=== PATIENT | male | born 1950 | race Two or more races ===

== ENCOUNTER → 2024-06-02 | Outpatient (CLI) | payer MEDICARE, MEDICAID, SELFPAY ==
[2024-06-02 08:39] LABS: Basophils # (Auto) 0.1 Thou/mm3 (0.0-0.2); Basophils % (Auto) 1 % (0-2.5); Eosinophils # (Auto) 0.3 Thou/mm3 (0.0-0.5); Eosinophils % (Auto) 4 % (0-10); Hemoglobin 13.6 g/dL (13.5-16.0); Immature Granulocytes % (Auto) 0 % (0-0); Immature Granulocytes Auto 0.01 Thou/mm3 (0.00-0.00); Lymphocytes # (Auto) 4.6 Thou/mm3 (1.0-4.8); Lymphocytes % (Auto) 57 % (10-50); Mean Corpuscular HGB Conc 33.2 g/dl (31.0-37.0); Mean Corpuscular Hemoglobin 29.7 pg (25.0-35.0); Mean Corpuscular Volume 90 fL (80-100); Monocytes # (Auto) 0.5 Thou/mm3 (0.0-0.8); Monocytes % (Auto) 6 % (0-12); Neutrophils # (Auto) 2.7 Thou/mm3 (1.8-7.7); Neutrophils % (Auto) 33 % (37-80); Nucleated Red Blood Cell % 0 /100 WBC (0); Platelet Count 272 Thou/mm3 (140-440); RDW Standard Deviation 45.6 fL (35.1-43.9); Red Blood Count 4.58 Miln/mm3 (4.50-5.90); White Blood Count 8.2 Thou/mm3 (3.8-10.6)
[2024-06-02 08:51] LABS: Prostate Specific Antigen < 0.10 ng/mL (0-4.00)
[2024-06-02 08:56] LABS: Alanine Aminotransferase 47 U/L (10-49); Albumin, Serum 4.7 gm/dL (3.4-4.8); Alkaline Phosphatase 70 U/L (46-116); Anion Gap 10 (7-16); Aspartate Amino Transferase 34 U/L (0-34); BUN/Creatinine Ratio 28 Ratio (12-20); Bilirubin,Total 0.4 mg/dL (0.3-1.2); Blood Urea Nitrogen 33 mg/dL (9-23); Carbon Dioxide 21.4 mMol/L (20.0-31.0); Chloride 106 mMol/L (98-107); Creatinine (Component) 1.2 mg/dL (0.6-1.3); Globulin 2.4 gm/dL (2.3-3.5); Glucose 134 mg/dL (74-106); Osmolality,Calculated 283 (275-295); Potassium 4.2 mMol/L (3.4-5.1); Sodium 137 mMol/L (136-145); Total Protein 7.1 gm/dL (5.7-8.2); eGFR > 60 See Note
== END | disposition home or self-care (01) ==
LOC: SCTO 07:46
PROVIDERS: PCP Nurse Practitioner Primary Care; Referring Provider Internal Medicine Hematology & Oncology; Visit Provider Internal Medicine Hematology & Oncology
DX: C61 Malignant neoplasm of prostate (principal); C79.51 Secondary malignant neoplasm of bone
CPT/HCPCS: 36415; 80053; 84153; 85025

== ENCOUNTER 2024-06-06 09:33 | Outpatient (RCR) | payer MEDICARE, MEDICAID, SELFPAY | END 2024-06-20 23:59 | disposition home or self-care (01) | LOC: SCTC 09:33 | PROVIDERS: PCP Nurse Practitioner Primary Care; Referring Provider Nurse Practitioner Primary Care; Visit Provider Nurse Practitioner Family | DX: C61 Malignant neoplasm of prostate (principal); C79.51 Secondary malignant neoplasm of bone; Z79.818 Long term (current) use of other agents affecting estrogen receptors and estrogen levels | CPT/HCPCS: 99212; G0463 ==

== ENCOUNTER → 2024-07-14 | Outpatient (CLI) | payer MEDICARE, MEDICAID, SELFPAY ==
[2024-07-14 08:54] LABS: Basophils # (Auto) 0.1 Thou/mm3 (0.0-0.2); Basophils % (Auto) 1 % (0-2.5); Eosinophils # (Auto) 0.3 Thou/mm3 (0.0-0.5); Eosinophils % (Auto) 3 % (0-10); Hematocrit 39.2 % (41.0-53.0); Hemoglobin 13.4 g/dL (13.5-16.0); Immature Granulocytes % (Auto) 0 % (0-0); Immature Granulocytes Auto 0.01 Thou/mm3 (0.00-0.00); Lymphocytes # (Auto) 4.1 Thou/mm3 (1.0-4.8); Lymphocytes % (Auto) 49 % (10-50); Mean Corpuscular HGB Conc 34.2 g/dl (31.0-37.0); Mean Corpuscular Hemoglobin 30.5 pg (25.0-35.0); Mean Corpuscular Volume 89 fL (80-100); Monocytes # (Auto) 0.6 Thou/mm3 (0.0-0.8); Monocytes % (Auto) 7 % (0-12); Neutrophils # (Auto) 3.3 Thou/mm3 (1.8-7.7); Neutrophils % (Auto) 40 % (37-80); Nucleated Red Blood Cell % 0 /100 WBC (0); Platelet Count 285 Thou/mm3 (140-440); RDW Standard Deviation 44.4 fL (35.1-43.9); White Blood Count 8.4 Thou/mm3 (3.8-10.6)
[2024-07-14 09:04] LABS: Prostate Specific Antigen < 0.10 ng/mL (0-4.00)
[2024-07-14 09:12] LABS: Alanine Aminotransferase 68 U/L (10-49); Albumin, Serum 4.6 gm/dL (3.4-4.8); Albumin/Globulin Ratio 2.1 (1.2-2.2); Alkaline Phosphatase 53 U/L (46-116); Anion Gap 9 (7-16); Aspartate Amino Transferase 39 U/L (0-34); BUN/Creatinine Ratio 23 Ratio (12-20); Bilirubin,Total 0.5 mg/dL (0.3-1.2); Blood Urea Nitrogen 23 mg/dL (9-23); Calcium 9.2 mg/dL (8.3-10.6); Calcium (Corrected) 9.2 mg/dL (8.5-10.1); Carbon Dioxide 24.4 mMol/L (20.0-31.0); Chloride 105 mMol/L (98-107); Globulin 2.2 gm/dL (2.3-3.5); Glucose 118 mg/dL (74-106); Osmolality,Calculated 280 (275-295); Potassium 4.2 mMol/L (3.4-5.1); Sodium 138 mMol/L (136-145); Total Protein 6.8 gm/dL (5.7-8.2); eGFR > 60 See Note
== END | disposition home or self-care (01) ==
LOC: SCTO 07:50
PROVIDERS: PCP Nurse Practitioner Primary Care; Referring Provider Internal Medicine Hematology & Oncology; Visit Provider Internal Medicine Hematology & Oncology
DX: C61 Malignant neoplasm of prostate (principal); C79.51 Secondary malignant neoplasm of bone
CPT/HCPCS: 36415; 80053; 84153; 85025

== ENCOUNTER 2024-07-18 13:30 | Outpatient (RCR) | payer MEDICARE, MEDICAID, SELFPAY | END 2024-07-21 23:59 | disposition home or self-care (01) | LOC: SCTC 13:30 | PROVIDERS: PCP Nurse Practitioner Primary Care; Referring Provider Nurse Practitioner Primary Care; Visit Provider Internal Medicine Hematology & Oncology | DX: Z51.11 Encounter for antineoplastic chemotherapy (principal); C61 Malignant neoplasm of prostate; C79.51 Secondary malignant neoplasm of bone; Z19.2 Hormone resistant malignancy status; Z79.818 Long term (current) use of other agents affecting estrogen receptors and estrogen levels | CPT/HCPCS: 96402; J9217 ==

== ENCOUNTER → 2024-11-17 | Outpatient (CLI) | payer MEDICARE, MEDICAID, SELFPAY ==
[2024-11-17 08:46] LABS: Basophils # (Auto) 0.1 Thou/mm3 (0.0-0.2); Basophils % (Auto) 1 % (0-2.5); Eosinophils # (Auto) 0.3 Thou/mm3 (0.0-0.5); Eosinophils % (Auto) 4 % (0-10); Hematocrit 40.5 % (41.0-53.0); Hemoglobin 13.6 g/dL (13.5-16.0); Immature Granulocytes % (Auto) 0 % (0-0); Immature Granulocytes Auto 0.01 Thou/mm3 (0.00-0.00); Lymphocytes # (Auto) 4.5 Thou/mm3 (1.0-4.8); Lymphocytes % (Auto) 55 % (10-50); Mean Corpuscular HGB Conc 33.6 g/dl (31.0-37.0); Mean Corpuscular Hemoglobin 30.8 pg (25.0-35.0); Mean Corpuscular Volume 92 fL (80-100); Monocytes # (Auto) 0.7 Thou/mm3 (0.0-0.8); Monocytes % (Auto) 8 % (0-12); Neutrophils # (Auto) 2.7 Thou/mm3 (1.8-7.7); Neutrophils % (Auto) 33 % (37-80); Nucleated Red Blood Cell % 0 /100 WBC (0); Platelet Count 290 Thou/mm3 (140-440); RDW Standard Deviation 47.1 fL (35.1-43.9); Red Blood Count 4.42 Miln/mm3 (4.50-5.90); White Blood Count 8.2 Thou/mm3 (3.8-10.6)
[2024-11-17 09:04] LABS: Prostate Specific Antigen < 0.10 ng/mL (0-4.00)
[2024-11-17 09:15] LABS: Alanine Aminotransferase 71 U/L (10-49); Albumin, Serum 4.3 gm/dL (3.4-4.8); Albumin/Globulin Ratio 1.9 (1.2-2.2); Alkaline Phosphatase 71 U/L (46-116); Anion Gap 12 (7-16); Aspartate Amino Transferase 41 U/L (0-34); BUN/Creatinine Ratio 15 Ratio (12-20); Bilirubin,Total 0.4 mg/dL (0.3-1.2); Blood Urea Nitrogen 15 mg/dL (9-23); Calcium 9.3 mg/dL (8.3-10.6); Calcium (Corrected) 9.3 mg/dL (8.5-10.1); Carbon Dioxide 25.4 mMol/L (20.0-31.0); Chloride 105 mMol/L (98-107); Globulin 2.3 gm/dL (2.3-3.5); Glucose 121 mg/dL (74-106); Osmolality,Calculated 284 (275-295); Potassium 4.9 mMol/L (3.4-5.1); Sodium 142 mMol/L (136-145); Total Protein 6.6 gm/dL (5.7-8.2); eGFR > 60 See Note
== END | disposition home or self-care (01) ==
PROVIDERS: PCP Physician Assistant; Referring Provider Nurse Practitioner Family; Visit Provider Nurse Practitioner Family
DX: C61 Malignant neoplasm of prostate (principal); C79.51 Secondary malignant neoplasm of bone
CPT/HCPCS: 36415; 80053; 84153; 85025

== ENCOUNTER 2024-11-21 10:12 | Outpatient (RCR) | payer MEDICARE, MEDICAID, SELFPAY ==
--- NOTE | 2024-11-22 10:10 | CTCFLWUP_ITS ---
Patient: TICO RAYGOZA : 1950 Page 2 of 2 FOLLOW UP NOTE DATE OF SERVICE: 11/21/2024 NAME: TICO RAYGOZA ACCOUNT: [id number] : 1950 AGE: 74 INTERVAL HISTORY: Subjective: Chief Complaint Leg pain for a while , difficulty getting up in the morning History of Present Illness Jaret Torres, a 74-year-old male with a history of prostate cancer on Lupron therapy, presents with leg pain and medication refill requests. The patient reports ongoing leg pain that has been present for a while. He describes the pain as improving with walking and worsening upon waking in the morning. The patient attributes the pain to his age, though no specific incident precipitated its onset. The patient ran out of his calcium and vitamin D supplements approximately one month ago and has not been taking them since. He typically purchases these supplements over the counter in [place]. Additionally, the patient reports running out of his prescribed prednisone and ivermectin medications. Regarding his prostate cancer treatment, the patient continues to take Lupron, which is noted to potentially cause body stiffness as a side effect. His PSA levels remain well-controlled at less than 0.10. The patient denies current alcohol consumption, though there is a history of past alcohol use. He has been advised to limit Tylenol use due to slightly elevated liver enzymes. Medications and Supplements - Calcium and vitamin D - Ran out about a month ago. Previously bought over the counter - Prednisone/ - Zytiga -Ran out - Lupron - Causing body stiffness. Review of Systems Musculoskeletal: Positive for leg pain, improves with walking. Negative for morning stiffness. Objective: Laboratory, Imaging, and Diagnostic Test Results - PSA: < 0.10 - Liver enzymes: Elevated (specific values not provided) History at the time of presentation Tico Raygoza is a 74-year-old Ethiopian-speaking male with following history. 12/28/2016: X-ray of the cervical spine showed abnormal sclerosis involving C3, C5 most consistent with osteoblastic metastasis. 01/12/2017: Bone scan was done which showed abnormal isotope accumulation right acetabulum, right iliac bone, right sacrum, L4, L2, mid dorsal spine approximately T7, T5, extensive abnormal uptake in the cervical spine as well as the right mandible. It was consistent with metastatic disease to the bone. 01/21/2017: PSA 2499.5 05/05/2017: PSA 8.3. 02/05/2017: CT scan of the chest abdomen pelvis with and without contrast was obtained which showed small likely metastatic right lung pulmonary nodules. Extensive para-aortic, paracaval and pelvic metastatic adenopathy along with widespread osseous metastatic disease was identified. Enlarged prostate with enhancing nodule as well as enlarged seminal vesicles were noted. 02/17/2017: Patient was started on radiation therapy to the prostate. His last dose of the radiation was on 04/15/2017. 2016: Lupron and Casodex were started. 06/02/2017: Patient was started on Lupron, Zytiga and prednisone. 03/28/2018: Patient continues to take Lupron, Zytiga, prednisone as well as Xgeva. He is doing very well. Denies any new complaints. Denies any weakness fatigue cough chest pain shortness of breath abdominal pain or leg cramps. His last PSA was checked on 03/25/2018 and it is less than 0.1. 09/26/2018: PSA less than 0.1. 11/28/2019: PSA less than 0.10. 03/01/2020: PSA less than 0.10. 10/22/2020: PSA less than 0.10. 03/04/2021: CT scan of the abdomen and pelvis with IV contrast? 03/21/2021: PSA less than 0.10 06/23/2021: PSA less than 0.10. 04/05/2023: PSA less than 0.10. 10/04/2022: PSA less than 0.10. 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 No clinical evidence of progression. Patient on Lupron Zytiga (750mg, 3 tablets total), did not tolerate 4 tablets due to fatigue, and also on prednisone and Xgeva. PSA continues to be <0.10. INTERVAL HISTORY: Tico Raygoza is a 74-year-old Ethiopian-speaking male with following history. 12/28/2016: X-ray of the cervical spine showed abnormal sclerosis involving C3, C5 most consistent with osteoblastic metastasis. 01/12/2017: Bone scan was done which showed abnormal isotope accumulation right acetabulum, right iliac bone, right sacrum, L4, L2, mid dorsal spine approximately T7, T5, extensive abnormal uptake in the cervical spine as well as the right mandible. It was consistent with metastatic disease to the bone. 01/21/2017: PSA 2499.5 05/05/2017: PSA 8.3. 02/05/2017: CT scan of the chest abdomen pelvis with and without contrast was obtained which showed small likely metastatic right lung pulmonary nodules. Extensive para-aortic, paracaval and pelvic metastatic adenopathy along with widespread osseous metastatic disease was identified. Enlarged prostate with enhancing nodule as well as enlarged seminal vesicles were noted. 02/17/2017: Patient was started on radiation therapy to the prostate. His last dose of the radiation was on 04/15/2017. 2016: Lupron and Casodex were started. 06/02/2017: Patient was started on Lupron, Zytiga and prednisone. 03/28/2018: Patient continues to take Lupron, Zytiga, prednisone as well as Xgeva. He is doing very well. Denies any new complaints. Denies any weakness fatigue cough chest pain shortness of breath abdominal pain or leg cramps. His last PSA was checked on 03/25/2018 and it is less than 0.1. 09/26/2018: PSA less than 0.1. 11/28/2019: PSA less than 0.10. 03/01/2020: PSA less than 0.10. 10/22/2020: PSA less than 0.10. 03/04/2021: CT scan of the abdomen and pelvis with IV contrast? 03/21/2021: PSA less than 0.10 06/23/2021: PSA less than 0.10. 04/05/2023: PSA less than 0.10. 10/04/2022: PSA less than 0.10. 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 abiraterone - 250 mg 3 tab Daily 2. aspirin - 81 mg 1 tab Daily 3. calcium carbonate-vitamin D3 - 600 mg-12.5 mcg (500 unit) 1 Capsule twice Daily 4. prednisone - 5 mg 1 tab Daily 5. Zytiga - 250 mg 3 tab Daily Medications Last Reconciled by Monique Murray MA on 11/21/2024 ALLERGIES: No Known Drug Allergies REVIEW OF SYSTEMS: A complete 14-point review of systems was performed and is negative except as noted in interval history. PHYSICAL EXAMINATION: VITAL SIGNS: Temperature?96.9, B/P?151/70, Oxygen?Saturation?96% Weight?173?lbs PAIN: 2 - Mild pain ECOG Performance Status: 1 - Symptomatic; ambulatory; restricted in strenuous activity Alert and oriented x 4. Conjunctive is right. Chest clear to auscultation. No wheezes or rails audible. CVS rhythm regular. Extremities no cyanosis. LABORATORY DATA: I have personally reviewed and interpreted each of the patient?s relevant lab tests, abnormal findings are below: Date 07/14/24 11/17/24 ??WHITE?BLOOD?COUNT?(Thou/mm3) 8.4 8.2 ??RED?BLOOD?COUNT?(Miln/mm3) 4.40?L 4.42?L ??HEMOGLOBIN?(gm/dl) 13.4?L 13.6 ??HEMATOCRIT?(%) 39.2?L 40.5?L ??PLATELET?COUNT?(Thou/mm3) 285 290 ??NEUTROPHILS?%,?AUTO?(%) 40 33?L ??LYMPH?%,?AUTO?(%) 49 55?H ??NEUTROPHILS,?AUTO?(Thou/mm3) 3.3 2.7 ??GLUCOSE,RANDOM?(mg/dL) 118?H 121?H ??BLOOD?UREA?NITROGEN?(mg/dL) 23 15 ??CREATININE?(mg/dL) 1.00 1.00 ??SODIUM?(mmol/L) 138 142 ??POTASSIUM?(mmol/L) 4.2 4.9 ??CHLORIDE?(mmol/L) 105 105 ??CrCl?(CandG)?(ml/min) 61.09 61.29 ??AST/SGOT?(Unit/L) 39?H 41?H ??ALT/SGPT?(Unit/L) 68?H 71?H ??ALKALINE?PHOSPHATASE?(Unit/L) 53 71 ??BILIRUBIN,?TOTAL?(mg/dL) 0.5 0.4 ??PROTEIN?TOTAL?(gm/dl) 6.8 6.6 ??ALBUMIN,?SERUM?(gm/dl) 4.6 4.3 ??GLOBULIN?(gm/dl) 2.2?L 2.3 ??ALBUMIN/GLOBULIN?RATIO 2.1 1.9 ??CALCIUM,?SERUM?(mg/dL) 9.2 9.3 ??CALCIUM?SERUM?(CORRECTED)?(mg/dL) 9.2 9.3 ASSESSMENT/PLAN: 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 Previously unable to tolerate Zytiga (1000 mg, 4 tablets) due to fatigue. No clinical evidence of progression. CBC CMP PSA prior to next follow Assessment and Plan: Jaret Torres, a 74-year-old male with a history of prostate cancer on Lupron therapy, presents with chronic leg pain and stiffness, particularly in the morning. Chronic leg pain and stiffness Assessment: Patient reports longstanding leg pain and stiffness, particularly prominent upon waking. Symptoms improve with ambulation. The etiology is likely related to the patient's ongoing Lupron therapy, which is known to cause musculoskeletal stiffness. Differential diagnoses include age-related os teoarthritis or other rheumatological conditions, but these are less likely given the temporal relationship with Lupron therapy and improvement with movement. Plan: - Recommend morning leg stretching exercises before getting out of bed - Encourage increased water intake - Advise to limit use of acetaminophen due to elevated liver enzymes - Prescribe calcium and vitamin D supplements - Patient to obtain from pharmacy if covered by insurance - Continue current Lupron therapy - Follow up in 3 months Prostate cancer Assessment: Patient has a history of prostate cancer and is currently on Lupron therapy. PSA levels remain well-controlled at less than 0.10, indicating good response to current treatment regimen. Plan: - Continue current Lupron therapy along with zytiga 750 mg - Renew prescription for prednisone and ivermectin through specialty pharmacy - Monitor PSA levels at follow-up visits - Follow up in 3 months Elevated liver enzymes Assessment: Patient has mildly elevated liver enzymes. While there is a history of alcohol use, the patient reports no current alcohol consumption. The elevation is stable and may be related to medications or other underlying factors. Plan: - Continue monitoring liver enzymes as are likely from Zytiga - Advise patient to limit acetaminophen use - Encourage increased water intake - Follow up in 3 months RETURN TO CLINIC: BILLING AND COMPLIANCE: I reviewed external records from providers outside my specialty as summarized above. I spent a total of 50 minutes on this patient?s care on the day of their visit excluding time spent related to any billed procedures. This time includes time spent with the patient as well as time spent documenting in the medical record, reviewing patients records and tests, obtaining history, placing orders, communicating with other healthcare professionals, counseling the patient, family or caregiver, and/or care coordination for the diagnoses above. Electronically Signed by: David Hamilton MD T: 10:08 AM CC: Cassi?Monty,?Robbie VOGT?Trinh? PCP: Ana Maria Erickson Referring: Ana Maria Erickson This document was completed utilizing speech recognition software. Grammatical errors, random word insertions, pronoun errors, and incomplete sentences are an occasional consequence of this system due to software limitations, ambient noise, and hardware issues. Any formal questions or concerns about the content, text or information contained within the body of this dictation should be directly addressed to the provider for clarification.
== END 2024-12-18 23:59 | disposition home or self-care (01) ==
LOC: SCTC 10:12
PROVIDERS: PCP Nurse Practitioner Primary Care; Referring Provider Nurse Practitioner Primary Care; Visit Provider Internal Medicine Hematology & Oncology
DX: C61 Malignant neoplasm of prostate (principal); C79.51 Secondary malignant neoplasm of bone; Z19.2 Hormone resistant malignancy status; Z79.818 Long term (current) use of other agents affecting estrogen receptors and estrogen levels; M79.606 Pain in leg, unspecified
CPT/HCPCS: 99213; G0463

== ENCOUNTER → 2025-02-23 | Outpatient (CLI) | payer MEDICARE, MEDICAID, SELFPAY ==
[2025-02-23 08:39] LABS: Basophils # (Auto) 0.0 Thou/mm3 (0.0-0.2); Basophils % (Auto) 0 % (0-2.5); Eosinophils # (Auto) 0.2 Thou/mm3 (0.0-0.5); Eosinophils % (Auto) 2 % (0-10); Hematocrit 38.2 % (41.0-53.0); Hemoglobin 12.7 g/dL (13.5-16.0); Immature Granulocytes Auto 0.02 Thou/mm3 (0.00-0.00); Lymphocytes # (Auto) 5.1 Thou/mm3 (1.0-4.8); Lymphocytes % (Auto) 51 % (10-50); Mean Corpuscular HGB Conc 33.2 g/dl (31.0-37.0); Mean Corpuscular Hemoglobin 30.0 pg (25.0-35.0); Mean Corpuscular Volume 90 fL (80-100); Monocytes # (Auto) 0.6 Thou/mm3 (0.0-0.8); Monocytes % (Auto) 6 % (0-12); Neutrophils # (Auto) 4.1 Thou/mm3 (1.8-7.7); Neutrophils % (Auto) 41 % (37-80); Nucleated Red Blood Cell # 0.00 Thou/mm3 (0.00-0.00); Nucleated Red Blood Cell % 0 /100 WBC (0); Platelet Count 267 Thou/mm3 (140-440); RDW Standard Deviation 46.0 fL (35.1-43.9); Red Blood Count 4.23 Miln/mm3 (4.50-5.90); White Blood Count 10.1 Thou/mm3 (3.8-10.6)
[2025-02-23 08:53] LABS: Alanine Aminotransferase 29 U/L (10-49); Albumin, Serum 4.2 gm/dL (3.4-4.8); Albumin/Globulin Ratio 2.1 (1.2-2.2); Alkaline Phosphatase 87 U/L (46-116); Anion Gap 13 (7-16); Aspartate Amino Transferase 25 U/L (0-34); BUN/Creatinine Ratio 27 Ratio (12-20); Bilirubin,Total 0.6 mg/dL (0.3-1.2); Blood Urea Nitrogen 35 mg/dL (9-23); Calcium 10.5 mg/dL (8.3-10.6); Calcium (Corrected) 10.5 mg/dL (8.5-10.1); Carbon Dioxide 23.6 mMol/L (20.0-31.0); Chloride 103 mMol/L (98-107); Creatinine (Component) 1.3 mg/dL (0.6-1.3); Globulin 2.0 gm/dL (2.3-3.5); Glucose 108 mg/dL (74-106); Osmolality,Calculated 288 (275-295); Potassium 3.9 mMol/L (3.4-5.1); Sodium 140 mMol/L (136-145); Total Protein 6.2 gm/dL (5.7-8.2); eGFR 58 See Note
[2025-02-23 08:54] LABS: Prostate Specific Antigen < 0.10 ng/mL (0-4.00)
== END | disposition home or self-care (01) ==
LOC: SCTO 07:30
PROVIDERS: PCP Nurse Practitioner Primary Care; Referring Provider Internal Medicine Hematology & Oncology; Visit Provider Internal Medicine Hematology & Oncology
DX: C61 Malignant neoplasm of prostate (principal); C79.51 Secondary malignant neoplasm of bone
CPT/HCPCS: 36415; 80053; 84153; 85025

== ENCOUNTER 2025-03-12 12:44 | Outpatient (RCR) | payer MEDICARE, MEDICAID, SELFPAY ==
--- NOTE | 2025-02-28 13:40 | CTCFLWUP_ITS ---
Patient: TICO RAYGOZA : 1950 Page 4 of 6 FOLLOW UP NOTE DATE OF SERVICE: 02/26/2025 NAME: TICO RAYGOZA ACCOUNT: [id number] : 1950 AGE: 74 INTERVAL HISTORY: Subjective: Chief Complaint Patient's leg pain is better after he was given medicine by his primary care. History of Present Illness Jaret Torres, a 74-year-old male with a history of prostate cancer on Lupron therapy, presents with leg pain and medication refill requests. The patient reports ongoing leg pain that has been present for a while. He describes the pain as improving with walking and worsening upon waking in the morning. The patient attributes the pain to his age, though no specific incident precipitated its onset. The patient ran out of his calcium and vitamin D supplements approximately one month ago and has not been taking them since. He typically purchases these supplements over the counter in [place]. Additionally, the patient reports running out of his prescribed prednisone and ivermectin medications. Regarding his prostate cancer treatment, the patient continues to take Lupron, which is noted to potentially cause body stiffness as a side effect. His PSA levels remain well-controlled at less than 0.10. The patient denies current alcohol consumption, though there is a history of past alcohol use. He has been advised to limit Tylenol use due to slightly elevated liver enzymes. Medications and Supplements - Calcium and vitamin D - Ran out about a month ago. Previously bought over the counter - Prednisone/ - Zytiga -Ran out - Lupron - Causing body stiffness. Review of Systems Musculoskeletal: Positive for leg pain, improves with walking. Negative for morning stiffness. Objective: Laboratory, Imaging, and Diagnostic Test Results - PSA: < 0.10 - Liver enzymes: Elevated (specific values not provided) History at the time of presentation Tico Raygoza is a 74-year-old Greenlandic-speaking male with following history. 12/28/2016: X-ray of the cervical spine showed abnormal sclerosis involving C3, C5 most consistent with osteoblastic metastasis. 01/12/2017: Bone scan was done which showed abnormal isotope accumulation right acetabulum, right iliac bone, right sacrum, L4, L2, mid dorsal spine approximately T7, T5, extensive abnormal uptake in the cervical spine as well as the right mandible. It was consistent with metastatic disease to the bone. 01/21/2017: PSA 2499.5 05/05/2017: PSA 8.3. 02/05/2017: CT scan of the chest abdomen pelvis with and without contrast was obtained which showed small likely metastatic right lung pulmonary nodules. Extensive para-aortic, paracaval and pelvic metastatic adenopathy along with widespread osseous metastatic disease was identified. Enlarged prostate with enhancing nodule as well as enlarged seminal vesicles were noted. 02/17/2017: Patient was started on radiation therapy to the prostate. His last dose of the radiation was on 04/15/2017. 2016: Lupron and Casodex were started. 06/02/2017: Patient was started on Lupron, Zytiga and prednisone. 03/28/2018: Patient continues to take Lupron, Zytiga, prednisone as well as Xgeva. He is doing very well. Denies any new complaints. Denies any weakness fatigue cough chest pain shortness of breath abdominal pain or leg cramps. His last PSA was checked on 03/25/2018 and it is less than 0.1. 09/26/2018: PSA less than 0.1. 11/28/2019: PSA less than 0.10. 03/01/2020: PSA less than 0.10. 10/22/2020: PSA less than 0.10. 03/04/2021: CT scan of the abdomen and pelvis with IV contrast? 03/21/2021: PSA less than 0.10 06/23/2021: PSA less than 0.10. 04/05/2023: PSA less than 0.10. 10/04/2022: PSA less than 0.10. 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 No clinical evidence of progression. Patient on Lupron Zytiga (750mg, 3 tablets total), did not tolerate 4 tablets due to fatigue, and also on prednisone and Xgeva. PSA continues to be <0.10. INTERVAL HISTORY: Tico Raygoza is a 74-year-old Greenlandic-speaking male with following history. 12/28/2016: X-ray of the cervical spine showed abnormal sclerosis involving C3, C5 most consistent with osteoblastic metastasis. 01/12/2017: Bone scan was done which showed abnormal isotope accumulation right acetabulum, right iliac bone, right sacrum, L4, L2, mid dorsal spine approximately T7, T5, extensive abnormal uptake in the cervical spine as well as the right mandible. It was consistent with metastatic disease to the bone. 01/21/2017: PSA 2499.5 05/05/2017: PSA 8.3. 02/05/2017: CT scan of the chest abdomen pelvis with and without contrast was obtained which showed small likely metastatic right lung pulmonary nodules. Extensive para-aortic, paracaval and pelvic metastatic adenopathy along with widespread osseous metastatic disease was identified. Enlarged prostate with enhancing nodule as well as enlarged seminal vesicles were noted. 02/17/2017: Patient was started on radiation therapy to the prostate. His last dose of the radiation was on 04/15/2017. 2016: Lupron and Casodex were started. 06/02/2017: Patient was started on Lupron, Zytiga and prednisone. 03/28/2018: Patient continues to take Lupron, Zytiga, prednisone as well as Xgeva. He is doing very well. Denies any new complaints. Denies any weakness fatigue cough chest pain shortness of breath abdominal pain or leg cramps. His last PSA was checked on 03/25/2018 and it is less than 0.1. 09/26/2018: PSA less than 0.1. 11/28/2019: PSA less than 0.10. 03/01/2020: PSA less than 0.10. 10/22/2020: PSA less than 0.10. 03/04/2021: CT scan of the abdomen and pelvis with IV contrast? 03/21/2021: PSA less than 0.10 06/23/2021: PSA less than 0.10. 04/05/2023: PSA less than 0.10. 10/04/2022: PSA less than 0.10. 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 abiraterone - 250 mg 3 tab Daily 2. aspirin - 81 mg 1 tab Daily 3. calcium carbonate-vitamin D3 - 600 mg-12.5 mcg (500 unit) 1 Capsule twice Daily 4. prednisone - 5 mg 1 tab Daily 5. Zytiga - 250 mg 3 tab Daily Medications Last Reconciled by Lashay Erickson MD on 02/26/2025 ALLERGIES: No Known Drug Allergies REVIEW OF SYSTEMS: A complete 14-point review of systems was performed and is negative except as noted in interval history. PHYSICAL EXAMINATION: VITAL SIGNS: Temperature?97.8, B/P?100/56, Oxygen?Saturation?95% Weight?176?lbs PAIN: 0 - No pain ECOG Performance Status: 0 - Asymptomatic and fully active Alert and oriented x 4. Conjunctive is right. Chest clear to auscultation. No wheezes or rails audible. CVS rhythm regular. Extremities no cyanosis. LABORATORY DATA: I have personally reviewed and interpreted each of the patient?s relevant lab tests, abnormal findings are below: Date 11/17/24 02/23/25 ??WHITE?BLOOD?COUNT?(Thou/mm3) 8.2 10.1 ??RED?BLOOD?COUNT?(Miln/mm3) 4.42?L 4.23?L ??HEMOGLOBIN?(gm/dl) 13.6 12.7?L ??HEMATOCRIT?(%) 40.5?L 38.2?L ??PLATELET?COUNT?(Thou/mm3) 290 267 ??NEUTROPHILS?%,?AUTO?(%) 33?L 41 ??LYMPH?%,?AUTO?(%) 55?H 51?H ??NEUTROPHILS,?AUTO?(Thou/mm3) 2.7 4.1 ??GLUCOSE,RANDOM?(mg/dL) 121?H 108?H ??BLOOD?UREA?NITROGEN?(mg/dL) 15 35?H ??CREATININE?(mg/dL) 1.00 1.30 ??SODIUM?(mmol/L) 142 140 ??POTASSIUM?(mmol/L) 4.9 3.9 ??CHLORIDE?(mmol/L) 105 103 ??CrCl?(CandG)?(ml/min) 61.29 47.25 ??AST/SGOT?(Unit/L) 41?H 25 ??ALT/SGPT?(Unit/L) 71?H 29 ??ALKALINE?PHOSPHATASE?(Unit/L) 71 87 ??BILIRUBIN,?TOTAL?(mg/dL) 0.4 0.6 ??PROTEIN?TOTAL?(gm/dl) 6.6 6.2 ??ALBUMIN,?SERUM?(gm/dl) 4.3 4.2 ??GLOBULIN?(gm/dl) 2.3 2.0?L ??ALBUMIN/GLOBULIN?RATIO 1.9 2.1 ??CALCIUM,?SERUM?(mg/dL) 9.3 10.5 ??CALCIUM?SERUM?(CORRECTED)?(mg/dL) 9.3 10.5?H ASSESSMENT/PLAN: 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 Previously unable to tolerate Zytiga (1000 mg, 4 tablets) due to fatigue. No clinical evidence of progression. Plan - Continue current Lupron therapy along with zytiga 750 mg - Renew prescription for prednisone and ivermectin through specialty pharmacy - Monitor PSA levels at follow-up visits - Follow up in 3 months ORDERS: Order # Description [id number] Follow Up 3 Months [id number] Comprehensive Metabolic Panel - 12 + PSA + CBC with Auto Diff RETURN TO CLINIC: I reviewed the diagnosis, prognosis, and recommended treatment/procedure options with the patient (and/or their legal industrial sales representative), including the potential benefits, risks, side effects and alternative therapies. We also discussed the option of no treatment and the possibility of clinical trial participation, if applicable. All questions were addressed, and they demonstrated understanding. They provided informed consent to proceed with the proposed plan of care. BILLING AND COMPLIANCE: I reviewed external records from providers outside my specialty as summarized above. I spent a total of 50 minutes on this patient?s care on the day of their visit excluding time spent related to any billed procedures. This time includes time spent with the patient as well as time spent documenting in the medical record, reviewing patients records and tests, obtaining history, placing orders, communicating with other healthcare professionals, counseling the patient, family or caregiver, and/or care coordination for the diagnoses above. Electronically Signed by: David Hamilton MD T: 1:38 PM CC: Cassi?Monty,?SIN, Robbie?Trinh? PCP: Angeles Erickson Referring: Angeles Erickson This document was completed utilizing speech recognition software. Grammatical errors, random word insertions, pronoun errors, and incomplete sentences are an occasional consequence of this system due to software limitations, ambient noise, and hardware issues. Any formal questions or concerns about the content, text or information contained within the body of this dictation should be directly addressed to the provider for clarification.
== END 2025-03-20 23:59 | disposition home or self-care (01) ==
LOC: SCTC 12:44
PROVIDERS: PCP Family Medicine; Referring Provider Family Medicine; Visit Provider Internal Medicine Hematology & Oncology
DX: C61 Malignant neoplasm of prostate (principal); C79.51 Secondary malignant neoplasm of bone; Z19.2 Hormone resistant malignancy status; Z79.818 Long term (current) use of other agents affecting estrogen receptors and estrogen levels
CPT/HCPCS: 99212; J9217; G0463

== ENCOUNTER → 2025-04-23 | Outpatient (CLI) | payer MEDICARE, MEDICAID, SELFPAY ==
[2025-04-23 08:35] LABS: Basophils # (Auto) 0.0 Thou/mm3 (0.0-0.2); Basophils % (Auto) 1 % (0-2.5); Eosinophils # (Auto) 0.3 Thou/mm3 (0.0-0.5); Eosinophils % (Auto) 4 % (0-10); Hematocrit 39.9 % (41.0-53.0); Hemoglobin 13.1 g/dL (13.5-16.0); Immature Granulocytes Auto 0.02 Thou/mm3 (0.00-0.00); Lymphocytes # (Auto) 3.8 Thou/mm3 (1.0-4.8); Lymphocytes % (Auto) 51 % (10-50); Mean Corpuscular HGB Conc 32.8 g/dl (31.0-37.0); Mean Corpuscular Hemoglobin 30.5 pg (25.0-35.0); Mean Corpuscular Volume 93 fL (80-100); Monocytes # (Auto) 0.6 Thou/mm3 (0.0-0.8); Monocytes % (Auto) 8 % (0-12); Neutrophils # (Auto) 2.8 Thou/mm3 (1.8-7.7); Neutrophils % (Auto) 37 % (37-80); Nucleated Red Blood Cell # 0.00 Thou/mm3 (0.00-0.00); Nucleated Red Blood Cell % 0 /100 WBC (0); Platelet Count 293 Thou/mm3 (140-440); RDW Standard Deviation 46.7 fL (35.1-43.9); Red Blood Count 4.30 Miln/mm3 (4.50-5.90); White Blood Count 7.6 Thou/mm3 (3.8-10.6)
[2025-04-23 08:45] LABS: Prostate Specific Antigen < 0.10 ng/mL (0-4.00)
[2025-04-23 08:46] LABS: Alanine Aminotransferase 96 U/L (10-49); Albumin, Serum 4.4 gm/dL (3.4-4.8); Albumin/Globulin Ratio 1.7 (1.2-2.2); Alkaline Phosphatase 121 U/L (46-116); Anion Gap 8 (7-16); Aspartate Amino Transferase 61 U/L (0-34); BUN/Creatinine Ratio 13 Ratio (12-20); Bilirubin,Total 0.4 mg/dL (0.3-1.2); Blood Urea Nitrogen 14 mg/dL (9-23); Calcium 9.9 mg/dL (8.3-10.6); Calcium (Corrected) 9.9 mg/dL (8.5-10.1); Carbon Dioxide 26.5 mMol/L (20.0-31.0); Chloride 108 mMol/L (98-107); Creatinine (Component) 1.1 mg/dL (0.6-1.3); Globulin 2.6 gm/dL (2.3-3.5); Glucose 100 mg/dL (74-106); Osmolality,Calculated 283 (275-295); Potassium 4.5 mMol/L (3.4-5.1); Sodium 142 mMol/L (136-145); Total Protein 7.0 gm/dL (5.7-8.2); eGFR > 60 See Note
== END | disposition home or self-care (01) ==
PROVIDERS: PCP Nurse Practitioner Primary Care; Referring Provider Internal Medicine Hematology & Oncology; Visit Provider Internal Medicine Hematology & Oncology
DX: C61 Malignant neoplasm of prostate (principal); C79.51 Secondary malignant neoplasm of bone
CPT/HCPCS: 36415; 80053; 84153; 85025